=== PATIENT | male | born 1945 | race Two or more races ===

== ENCOUNTER → 2017-03-25 | Day surgery (SDC) | payer MEDICARE, MEDICAID ==
[2017-03-25] VITALS (12 sets, daily range): BP systolic 113–144; BP diastolic 66–84; PULSE 60–61; RESP 12–19; O2SAT 92–96
[~2017-03-25] VITALS: Ht 167.6 cm; Wt 75.5 kg
[~2017-03-25] MED LIST: 0.9% Sodium Chloride 1,000 ML IV SCH; 0.9% Sodium Chloride 1,000 ML ONE; AMLO5TAB2 PO; APIX5TAB PO; ASPI-973 PO; ASPI325T32 PO; FLEC100T2 PO; HYDROcodone-APAP 5-325 mg Tablet PO PRN; HYG25 PO; Heparin 1,000 Unit/mL 10 mL Inj ONE; Heparin 10,000 Unit/1,000 mL NS Premix IV ONE; LOSA100T29 PO; METO200T4 PO; Ondansetron 2 mg/mL 2 mL Inj IVPUSH PRN; RANI150C4 PO; Vancomycin Inj 1,000 MG in IV Premix 1 EACH IV ONE; fentaNYL-PF 50 mCg/mL 2 mL Inj ONE
[2017-03-25 11:38] LABS: BASOPHILS % (AUTO) 0.3 % (0-3); EOSINOPHILS % (AUTO) 1.4 % (0-5); MONOCYTES % (AUTO) 8.4 % (4-12); Mean Corpuscular Hemoglobin 29.5 pg (27.0-35.0); Mean Corpuscular Volume 82.9 fL (81-100); NEUTROPHILS % (AUTO) 58.6 % (40-74); Platelet Count 255 bil/L (150-400)
--- NOTE | 2017-03-25 11:49 | NUR ---
ROBERT Admit Admitted to [facility] about 1100. VSS. States some left lower back discomfort. Rates 8/10 and states is decreasing. States it is radicular pain he sometimes has and that he does not medicate it. Tele SR vs paced, EKG pending. IVs started and labs sent. Procedure and recovery reviewed and verbalizes understanding. All communication through tax assistant. Awaiting garage laborer.
[2017-03-25 11:59] LABS: INR 0.95 ratio
--- NOTE | 2017-03-25 15:28 | NUR ---
Received Pt. to wheelabrator operator at 1255. Received from wheelabrator operator at 1515. VSS. Denies pain. Tele 100% Apaced. Right groin without bleeding or hematoma. Groin precautions reviewed and verbalizes understanding. Technical Solution Architect at bedside. Monitor per orders.
--- NOTE | 2017-03-25 19:53 | NUR ---
Discharge Assessment unchanged, see EMR. Bedrest complete at 1915. Up to bathroom and in barry without change in groin. Denies pain. Discharge instructions reviewed with pt., daughter and nursing informatics specialist, see sheets. Pt. and daughter verbalize understanding. IVs discontinued intact. Discharged ambulatory with daughter and all belongings at 1941 in no distress.
--- NOTE | 2017-03-26 06:44 | PROCED ---
[address] [address] PROCEDURE NOTE PATIENT: MARYURI BEJARANO I : 1945 MR#: [id number] ADMIT: 03/25/2017 JOB ID: [id number] DATE OF SERVICE: 03/25/2017 PREOPERATIVE DIAGNOSIS(ES): Recurrent atrial flutter. POSTOPERATIVE DIAGNOSIS(ES): Recurrent atrial flutter. PROCEDURES PERFORMED: 1. Comprehensive electrophysiology study with left atrial pacing via the coronary sinus catheter. 2. Three-dimensional electroanatomical mapping using the CARTO 3 system. 3. Atrial flutter ablation (supraventricular tachycardia ablation; cavotricuspid isthmus ablation). 4. Periprocedural pacemaker programming and reprogramming. 5. Fluoroscopy. SURGEON: Trichologist: Kalyan Dean MD, Electrophysiology Attending SEARCH MARKETING SPECIALIST: Ruben Woodward PA-C ANESTHESIA: Bolus dosing of Versed and fentanyl were utilized for appropriate level of sedation. INDICATION: This patient is a pleasant, 72-year-old man with preserved LV function, sick sinus syndrome, dual-chamber pacemaker in place, who has had recurrent drug refractory atrial flutter despite being on flecainide. After discussion of risks and benefits of catheter based mapping and ablation, he opted to proceed. PROCEDURE DESCRIPTION: Following informed consent, the patient was taken to the EP Laboratory in a fasting state. He was prepped and draped in the usual sterile fashion. The right inguinal region was infiltrated with 1% lidocaine. Then using the modified Seldinger technique, one 8 and two 7-Romanian sheaths were inserted in the right femoral vein. Under fluoroscopic guidance, a deflectable decapolar catheter was advanced to the coronary sinus. The most proximal bipoles at the os of the sinus. A 20 pole LiveWire deflectable catheter was advanced and used to encircle the tricuspid annulus. A J curve Smart Touch ablation catheter was brought to the field and used to create a three-dimensional electro cavotricuspid isthmus. The patient's pacemaker was interrogated preprocedurally and showed stable sensing thresholds and impedances. He was programmed to VVI 40 beats per minute for the time being when we were working. Pacing was undertaken from the coronary sinus os while mitral and atrial activation pattern on the Livewire catheter. A linear series of ablations was performed from the ventricular to the IVC aspect of the isthmus. Ultimately during this medial to lateral block was achieved with a shift in atrial activation pattern on the Livewire catheter. Lateral to medial block was confirmed. A 20-30 minute waiting period was undertaken during which bidirectional block was confirmed and during the course of this study, we did complete a comprehensive electrophysiology study with right atrial pacing recording, right ventricular to His bundle recording, and left atrial pacing sinus catheter. All catheters and sheaths were removed. Manual pressure was held for hemostasis. The patient was taken to the ICU for monitoring, bed rest and discharge. The patient's pacemaker was re-interrogated showing excellent sensing, impedances and thresholds in both chambers. He was reprogrammed to DDD 60-130 beats per minute. COMPLICATIONS: None. ESTIMATED BLOOD LOSS: Negligible. FINDINGS: 1. Baseline rhythm was sinus bradycardia with an RR interval of 1409 msec, NM 205 msec, QRS 112 msec, QT 401 msec. 2. Intracardiac intervals: AH interval 123 msec, HV 74 msec. 3. Antegrade conduction: Atrial activation is concentric. VA Wenckebach is seen at just above 600 msec. 4. Cavotricuspid isthmus ablation as described above with bidirectional block; specifically transisthmus time is 201 msec in the medial to lateral direction and 211 msec from lateral to medial direction. IMPRESSION: Successful cavotricuspid isthmus ablation for typical recurrent drug refractory atrial flutter. PLAN: 1. Bed rest x4 hours. 2. Anticoagulation for one month starting immediately after procedure with Eliquis 5 mg twice daily. 3. Follow up with Ruben Woodward in four weeks and with Dr. Dudley thereafter. ATTENDING STATEMENT: Kalyan Dean MD, Electrophysiology Attending was present for and supervised/performed all aspects of this procedure.
== END | disposition home or self-care (01) ==
LOC: SOUO 00:30
PROVIDERS: ATTEND Internal Medicine Cardiovascular Disease
DX: I48.3 Typical atrial flutter (principal); I49.5 Sick sinus syndrome; I48.0 Paroxysmal atrial fibrillation; I47.1 Supraventricular tachycardia; I10 Essential (primary) hypertension; Z79.01 Long term (current) use of anticoagulants; Z79.899 Other long term (current) drug therapy; Z95.0 Presence of cardiac pacemaker
CPT/HCPCS: 36415; 80048; 85025; 85610; 93613; 93621; 93653; 99152; 99153; C1730; C1731; C1732; C1893; J1644; J2250; J3010; J7030